=== PATIENT | male | born 1990 | race Hispanic/Latino ===

== ENCOUNTER → 2024-07-05 07:47 | Outpatient (REF) | payer OTHER, SELFPAY ==
[2024-07-05 09:17] LABS: Hematocrit 43.3 % (39.0-52.0); Hemoglobin 14.6 g/dL (13.0-18.0); Mean Corp Hgb Conc. 33.7 g/dL (33.0-37.0); Mean Corpuscular Hgb 29.2 pg (27.0-31.0); Mean Corpuscular Volume 86.6 fL (80.0-94.0); Mean Platelet Volume 10.8 fL (7.4-10.4); Platelet Count 302 10^3/uL (130-400); White Blood Cell Count 5.9 10^3/uL (4.8-10.8)
[2024-07-05 09:52] LABS: ALT (SGPT) 139 U/L (0-50); AST (SGOT) 105 U/L (17-59); Albumin 4.8 g/dl (3.5-5.0); Alkaline Phosphatase 104 U/L (38-126); Blood Urea Nitrogen 19 mg/dl (9-20); Calcium 9.9 mg/dl (8.4-10.2); Carbon Dioxide 30 mmol/L (22-30); Chloride 99 mmol/L (98-107); Glucose 109 mg/dl (70-99); Potassium 4.5 mmol/L (3.5-5.1); Sodium 138 mmol/L (135-145); Total Bilirubin 1.1 mg/dl (0.2-1.3); Total Protein 7.6 g/dl (6.3-8.2); eGFR > 60.00
[2024-07-05 10:23] LABS: Glycohemoglobin (HgbA1c) 5.8 % (4.0-5.6)
== END ==
LOC: CLINIC 07:47
PROVIDERS: ATTENDING PHYSICIAN Nurse Practitioner Adult Health
DX: K76.0 Fatty (change of) liver, not elsewhere classified (principal); R73.03 Prediabetes; Z00.00 Encounter for general adult medical examination without abnormal findings
CPT/HCPCS: 36415; 80053; 83036; 85027

== ENCOUNTER 2025-02-19 23:25 | Emergency (ER) | payer SELFPAY ==
[2025-02-19 23:56] VITALS: BP 141/86
--- NOTE | 2025-02-20 01:52 | ED.SKININJ ---
HPI-Injury
General
Chief Complaint: Bite
Source: patient
Exam Limitations: none
Time Seen by Provider: 02/20/25 01:50
Nursing documentation reviewed up to this point in time: agreed with
History of Present Illness-Injury
Is this injury a work related problem?: No
Is pt an associate of [facility]?: No
Initial Injury comments:
Note:
CHIEF COMPLAINT(S)
Cat bite on the hand.
HISTORY OF PRESENT ILLNESS
The patient is a 34-year-old male who presented after being bitten by a cat approximately a few hours ago, estimated around 10:40 to 11:00 AM. The patient describes attempting to bring a stray cat into his house due to the rain when the incident
occurred. The cat bite resulted in a puncture wound and a cut on the hand, which does exhibit some minor swelling, but no significant hardness or signs of tendon damage as self-assessed by the patient. The patient is unsure of the cats vaccination
status, particularly regarding rabies. He is not up to date on his tetanus vaccination. He denies any fevers or chills.
ADDITIONAL HISTORY OBTAINED FROM SOURCES OTHER THAN THE PATIENT
Per the patient, there is no known motion and time study teacher of the cat, and the cat appears to be a stray, lacking any identifiable rabies vaccination documentation.
PLAN
1. Order an X-ray to check for foreign bodies, such as tooth fragments, in the wound area.
2. Administer a tetanus booster vaccine as it is unclear if the patient is up to date.
3. Initiate antibiotics to prevent infection.
4. Provide rabies prophylaxis given the uncertain status of the cat.
5. Wound cleaning and management.
DIFFERENTIAL DIAGNOSIS
The Differential Diagnosis includes, in no particular order and is not limited to:
1. Cat bite wound.
2. Infection due to a cat bite.
3. Rabies exposure.
4. Foreign body in wound.
5. Allergic reaction to trauma.
6. Tendon involvement (ruled out clinically but under vigilance).
7. Cellulitis.
8. Abscess formation.
9. Septic arthritis.
10. Tetanus exposure (prevented with vaccination).
Phy Exam
General Physical Exam
General Presentation: well appearing and no apparent distress
General Skin: warm
General Habitus: normal
General Mental: alert
General Hydration: appears well hydrated
ENT Exam
ENT Exam: EOMI
Cardiovascular Exam
Cardiovascular Exam: regular rate/rhythm and no edema
Pulmonary Exam
Pulmonary Exam: lungs clear and no respiratory distress
Neurological Exam
Neurological Exam: alert, oriented x3, CN II-XII intact and no sensory deficits
Musculoskeletal Exam
Musculoskeletal Exam: full ROM (full rom and 5/5 FDS and FDP strength of all the digits )
Skin Exam
Skin Exam: warm/dry and other (there is a small puncture wound with surrounding swelling noted to the right lateral dorsal hand, there is a 2 cm very superficial linear laceration noted to the anteriomedial aspect of the right hand)
Course
Orders/Labs/Results
Orders:
Orders
02/20/25 02:07
CR Hand - Right 2 Views Urgent
Comment:
Reason For Exam: right hand pain (foreign body search)
02/20/25 02:09
Tetanus/Diphth/Acelpertussis [Adacel] 0.5 ml IM .ONCE ONE
02/20/25 02:14
Amoxicillin 875 mg/Clav 125 mg [Augmentin 875 mg/125 mg] 1 tablet PO NOW STA
Ibuprofen [Motrin] 600 mg PO NOW STA
02/20/25 02:26
Rabies Immune Globulin/Pf [HyperRAB] 1,940 unit IM NOW STA
02/20/25 02:30
Rabies Vaccine (Pcec)/Pf [Rabavert Rabies Vacc W-Diluent] 2.5 unit IM .ONCE ONE
Vital Signs
Initial and Last Documented VS:
Initial Vital Signs
Temp Pulse Resp BP Pulse Ox
98.1 F 75 15 141/86 98
02/19/25 23:56 02/19/25 23:56 02/19/25 23:56 02/19/25 23:56 02/19/25 23:56
Last Documented Vital Signs
Temp Pulse Resp BP Pulse Ox
98.1 F 75 15 137/87 98
02/19/25 23:56 02/19/25 23:56 02/19/25 23:56 02/20/25 02:00 02/20/25 04:25
MDM/Problems Addressed
Differential Diagnosis Includes:
see hpi
MDM/Problems Addressed:
The patient is a 34-year-old male who presented after being bitten by a cat approximately a few hours ago, estimated around 10:40 to 11:00 AM. Rabies post exposure prophy initiated. Started on Augmentin. Wounds thorougly irrigated and dressed.
Discussed strict return precautions. Patient stable for discharge.
*Pulse Oximetry
SaO2: 98
Oxygen Mode of Delivery: Room air
Patient hypoxic: no
*Critical Care Note
Total Time (30-74mins, 75-104mins- exclusive of procedures): Not Applicable
ED Attending Note
-
Portions of this chart may have been created with voice recognition software.� Occasional wrong word or��sound alike� substitutions may have occurred due to the inherent limitations of voice recognition software.
Discharge Plan
Departure
Patient Disposition: Home (Routine Discharge)
Date of Disposition: 02/20/25
Time of Disposition: 03:49
Patient with high blood pressure during this ER visit?: Yes
Condition: Good
Discharge Problem:
Cat bite, Need for post exposure prophylaxis for rabies
Instructions: Animal Bites (DC), Rabies Vaccine, BLOOD PRESSURE
Prescriptions:
New
amoxicillin-pot clavulanate 875-125 mg tablet
1 tab PO BID 7 Days Qty: 14 0RF
Referrals:
Karol Womack NP [[facility], Internal Medicine]
Stand Alone Forms: Rabies Vaccine Post Exp Dosing
Activity Restrictions/Additional Instructions:
Please follow up with the free clinic in one week for reassessment of your wounds. Please monitor for signs of infection such as fevers or chills, purulent drainage, surrounding redness, streaking up the arm, in which case you should return to the
ER.
Please start taking Augmentin, antibiotic which has been sent to your pharmacy.
Please follow the rabies instruction sheet as to when you should return for your shots to the infusion center. If it falls on a weekend day, you can go to the infusion center on the next business day.
Please change dressing once daily. Please keep wounds clean and dry, do not use alcohol or hydrogen peroxide on the wounds. You can apply antibiotic ointment to the wounds.

Por favor, acuda a la cl�bryn gratuita en edward semana para edward reevaluaci�n de emma heridas. Est� atento a signos de infecci�n dylan fiebre o escalofr�os, secreci�n purulenta, enrojecimiento alrededor de la herida o que la secreci�n se extienda por el
brazo. En morelia de presentar estos s�ntomas, deber� regresar a urgencias.
Comience a ann-marie Augmentin, el antibi�monster que le enviamos a jimenez farmacia.
Siga las instrucciones de la vacuna antirr�bica para saber cu�ndo debe regresar al centro de infusi�n para recibir emma vacunas. Si la nydia en fin de semana, puede ir al centro de infusi�n el siguiente d�a h�moi.
C�mbiese el vendaje edward vez al d�a. Mantenga las heridas limpias y secas; no use alcohol ni agua oxigenada. Puede aplicar pomada antibi�grupo en las heridas.
Interventions
Interventions:
*Risk Screen - Suicide Last Done: 02/20/25 00:05
*General Assessment Last Done: 02/20/25 02:04
*Neglect/Abuse Screening Last Done: 02/20/25 00:05
*ED- Fall Risk Assessment Last Done: 02/20/25 02:04
*ED COVID-19 Vaccine History Last Done: 02/20/25 00:04
*ED Influenza Vaccine History Last Done: 02/20/25 00:04
*Nursing Disposition Last Done: 02/20/25 04:07
ED-Skin Assessment Last Done: 02/20/25 02:04
Discharge Date and Time
Discharge Date/Time: 02/20/25 04:08
Print Language: AUSTRALIAN
[2025-02-20 02:00] VITALS: BP 137/87
[2025-02-20 02:02] VITALS: BMI 33.5
[2025-02-20] MEDS: MOTRIN 600 MG PO (02:27)
[2025-02-20] MEDS: AUGMENTIN 875 MG/125 MG 1 TABLET PO (02:28)
[2025-02-20] MEDS: ADACEL 0.5 ML IM (02:30)
[2025-02-20] MEDS: RABAVERT RABIES VACC W-DILUENT 2.5 UNIT IM (03:03)
== END 2025-02-20 04:08 | disposition home or self-care (01) ==
LOC: EMR 23:25
PROVIDERS: EMERGENCY PHYSICIAN Emergency Medicine; FAMILY PHYSICIAN Nurse Practitioner Adult Health
DX: S61.451A Open bite of right hand, initial encounter (principal); R03.0 Elevated blood-pressure reading, without diagnosis of hypertension; Z20.3 Contact with and (suspected) exposure to rabies; Z23 Encounter for immunization; Z29.14 Encounter for prophylactic rabies immune globulin; W55.01XA Bitten by cat, initial encounter; Y92.008 Other place in unspecified non-institutional (private) residence as the place of occurrence of the external cause
CPT/HCPCS: 99283; 90471; 73120; 90375; 90675; 90715

== ENCOUNTER 2025-03-06 15:24 | Outpatient (RCR) | payer SELFPAY ==
[2025-02-24 15:39] VITALS: BP 134/67
[2025-02-24] MEDS: RABAVERT RABIES VACC W-DILUENT 2.5 UNIT IM (15:53)
[2025-02-27 15:40] VITALS: BP 137/64
[2025-02-27] MEDS: RABAVERT RABIES VACC W-DILUENT 2.5 UNIT IM (15:44)
[2025-03-06 15:39] VITALS: BP 128/77
[2025-03-06] MEDS: RABAVERT RABIES VACC W-DILUENT 2.5 UNIT IM (15:42)
== END 2025-03-07 10:30 | disposition home or self-care (01) ==
LOC: OID 15:24
PROVIDERS: ATTENDING PHYSICIAN Emergency Medicine
DX: Z20.3 Contact with and (suspected) exposure to rabies (principal); Z23 Encounter for immunization
CPT/HCPCS: 90471; 90675

== ENCOUNTER → 2025-03-28 07:28 | Outpatient (REF) | payer OTHER, SELFPAY ==
[2025-03-28 10:12] LABS: ALT (SGPT) 46 U/L (0-50); AST (SGOT) 46 U/L (17-59); Albumin 4.7 g/dl (3.5-5.0); Alkaline Phosphatase 95 U/L (38-126); Total Protein 7.6 g/dl (6.3-8.2)
== END ==
LOC: CLINIC 07:28
PROVIDERS: ATTENDING PHYSICIAN Nurse Practitioner Adult Health
DX: K76.0 Fatty (change of) liver, not elsewhere classified (principal)
CPT/HCPCS: 36415; 80076